=== PATIENT | female | born 1960 | race Caucasian/White ===

== ENCOUNTER 2024-01-24 11:22 | Emergency (ER) | payer BC, MEDICARE ==
[~2024-01-24] VITALS: Ht 167.6 cm; Wt 90.7 kg
[2024-01-24 11:22] VITALS: BP 145/81; PULSE 94; RESP 18; TEMP 98.2; O2SAT 97
[2024-01-24] MEDS ORDERED: ROCEPHIN ONE (11:51)
[2024-01-24] MEDS ORDERED: LIDOCAINE 1% VIAL ONE (11:52)
[2024-01-24] MEDS ORDERED: ULTRAM ONE (11:52)
[2024-01-24] MEDS: ULTRAM PO PRN (11:58)
[2024-01-24] MEDS: ROCEPHIN IM SCH (11:58)
[2024-01-24 11:59] VITALS: BP 136/91; PULSE 97; RESP 18; TEMP 98.2; O2SAT 97
== END 2024-01-24 12:13 | disposition home or self-care (01) ==
LOC: ER 11:22
DX: K02.9 Dental caries, unspecified (principal); K04.7 Periapical abscess without sinus; F17.210 Nicotine dependence, cigarettes, uncomplicated; J32.0 Chronic maxillary sinusitis; D46.9 Myelodysplastic syndrome, unspecified
CPT/HCPCS: 99283; 96372; J2001; J0696; J8499

== ENCOUNTER → 2024-04-22 | Outpatient (CLI) | payer MEDICARE | END | disposition home or self-care (01) | LOC: RAD 12:28 | PROVIDERS: ATTEND Nurse Practitioner | DX: S59.912A Unspecified injury of left forearm, initial encounter (principal); M79.602 Pain in left arm; X58.XXXA Exposure to other specified factors, initial encounter; Y93.89 Activity, other specified; Y92.89 Other specified places as the place of occurrence of the external cause; Y99.8 Other external cause status; Z91.81 History of falling | CPT/HCPCS: 73090-LT ==